=== PATIENT | male | born 1990 ===

== ENCOUNTER 2021-10-20 08:01 | Emergency (ER) | payer SELFPAY ==
[2021-10-20 08:38] VITALS: BP 108/68; PULSE 90
[2021-10-20 09:03] LABS: CORONAVIRUS COVID-19 NAA POSITIVE (NEGATIVE)
--- NOTE | 2021-10-20 09:07 | EDM.PDOC ---
ED HPI GENERAL MEDICAL PROBLEM - General Chief Complaint: General Stated Complaint: HAS 5-6 COVID SYMPTOMS SINCE FRIDAY Time Seen by Provider: 10/20/21 08:35 Source of Information: Reports: Patient, RN, RN Notes Reviewed History Limitations: Reports: No Limitations - History of Present Illness INITIAL COMMENTS - FREE TEXT/NARRATIVE: Pt presents to ER with c/o COVID exposure at work last week, and now has 2 days of cough, fever, gen. body aches, headache, and loss of taste. Denies CP or difficulty breathing. Onset: Gradual Duration: Day(s): (2), Constant Quality: Reports: Ache Severity: Moderate Improves with: Reports: None Worsens with: Reports: None Context: Reports: Sick Contact Associated Symptoms: Reports: No Other Symptoms - Related Data Allergies Allergy/AdvReac Type Severity Reaction Status Date / Time acetaminophen Allergy Fainting Verified 07/11/16 02:19 Past Medical History Hematologic History: Reports: Other (See Below) Other Hematologic History: low hemoglobin Social & Family History - Family History Family Medical History: No Pertinent Family History - Living Situation & Occupation Occupation: Employed ED ROS GENERAL - Review of Systems Review Of Systems: Comprehensive ROS is negative, except as noted in HPI. ED EXAM, GENERAL - Physical Exam Exam: See Below Exam Limited By: No Limitations General Appearance: Alert, WD/WN, No Apparent Distress Nose: Normal Inspection, Normal Mucosa, No Blood Throat/Mouth: Normal Inspection, Normal Lips, Normal Teeth, Normal Gums, Normal Oropharynx, Normal Voice, No Airway Compromise Head: Atraumatic, Normocephalic Neck: Normal Inspection, Supple, Non-Tender, Full Range of Motion Respiratory/Chest: No Respiratory Distress, Lungs Clear, Normal Breath Sounds, No Accessory Muscle Use, Chest Non-Tender Cardiovascular: Regular Rate, Rhythm GI/Abdominal: Normal Bowel Sounds, Soft, Non-Tender Back Exam: Normal Inspection Extremities: Normal Inspection, Normal Range of Motion, Non-Tender, Normal Capillary Refill, No Pedal Edema Neurological: Alert, Oriented, CN II-XII Intact, Normal Cognition, Normal Gait, No Motor/Sensory Deficits Psychiatric: Normal Mood Skin Exam: Warm, Dry, Intact, Normal Color, No Rash Course - Vital Signs Last Recorded V/S: Last Vital Signs Temp 98.8 F 10/20/21 08:35 Pulse 90 10/20/21 08:35 Resp 20 10/20/21 08:35 BP 108/68 10/20/21 08:35 Pulse Ox 99 10/20/21 08:35 - Orders/Labs/Meds Labs: Laboratory Tests 10/20/21 Range/Units 08:16 Influenza Type A RNA Negative (NEGATIVE) Influenza Type B RNA Negative (NEGATIVE) SARS-CoV-2 RNA (KRUNAL) Positive H (NEGATIVE) Departure - Departure Time of Disposition: 09:20 Disposition: Home, Self-Care 01 Condition: Good Clinical Impression: COVID-19 virus infection - Discharge Information *PRESCRIPTION DRUG MONITORING PROGRAM REVIEWED*: Not Applicable *COPY OF PRESCRIPTION DRUG MONITORING REPORT IN PATIENT PHIL: Not Applicable Instructions: 10 Things You Can Do to Manage Your COVID-19 Symptoms at Home - CDC (06/01/2021), What You Should Know About COVID-19 to Protect Yourself and Others - [facility] Forms: ED Department Discharge Additional Instructions: Take over the counter Enteric Coated Aspirin 81m tablets by mouth once a day for 14 days to reduce the risk of COVID associated blood clots. Isolate at home for 10 days per CDC guidelines. If your symptoms last longer than 10 days do not return to work until you have 2 negative COVID tests from your primary clinic or the health department testing center. Return to the ER or call 911 if you develop any difficulty breathing. Sepsis Event Note (ED) - Evaluation Sepsis Screening Result: No Definite Risk - Focused Exam Vital Signs: Vital Signs Temp Pulse Resp BP Pulse Ox 10/20/21 08:35 98.8 F 90 20 108/68 99
== END 2021-10-20 09:39 | disposition home or self-care (01) ==
LOC: DL.ED 08:01
DX: U07.1 COVID-19 (principal); Z88.6 Allergy status to analgesic agent
CPT/HCPCS: 0240U; 99284